=== PATIENT | male | born 1965 | race Caucasian/White ===

== ENCOUNTER 2022-07-12 01:18 | Day surgery (SDC) | payer OTHER, SELFPAY ==
[2022-07-04 12:27] VITALS: BMI 26.4
--- NOTE | 2022-07-04 12:30 | PC.NURSE ---
Report to the Outpatient Waiting Room, entrance under the green pavilion located off [facility], at time 10:30 on date 07/12/22. Planned Procedure Time: 12:30. Time changes happen often and if your time is changed the preop area will call you the afternoon before. - You and your visitor will be asked to self-screen and do not enter if you have any COVID symptoms. - Only one visitor is requested with a max of two and NO children visitors are allowed at this time. - The patient visitor may be requested to leave or wait in car when not with patient due to distancing restrictions. - A mask is optional within the hospital at this time. Patients may have clear liquids (water, carbonated beverages, clear teas, apple juice) until 3 hours prior to surgery with a maximum of 20 ounces. - No food from midnight until time of surgery Take the following medications with a SIP of water the morning of surgery: NONE DO NOT STOP ANY OF YOUR OTHER PRESCRIPTION MEDICATIONS PRIOR TO SURGERY EXCEPT THE FOLLOWING Medications to discontinue per physician: N/A Date to take last dose: N/A Please no make-up, nail amharic, hairspray, perfume, deodorant, or body powder the day of surgery. No jewelry (including any body piercings) or valuables the day of surgery, leave them at home. Please take a shower or bath the night before, or the morning of, surgery with an antibacterial soap. Wear comfortable, loose fitting clothing. - Jewelry must be removed prior to entering the operating room. Rings and piercings that are not removed may be cut off. - The hospital will not accept responsibility for valuables. - Please leave all valuables, including medications, at home the day of surgery. If you are going home after surgery, a licensed services delivery driver must drive you home. - NO public transportation without another adult if you receive anesthesia. - We recommend that an adult stay with you for 24 hours following discharge. - We also recommend that you do not drive, make important decision, drink alcoholic beverages, or take any drugs that were not prescribed by your health care provider for at least 24 hours after your discharge time. Follow any additional instructions given to you from your surgeon. If you or anyone in your household have experienced Covid symptoms in the past week, please notify your surgeon or the nurse liaison at the phone number below for possible testing. Telephone instructions given to PT - HLILARY DING and asked if any additional questions and then verbalized understanding. Patient advised to call surgeon office or pre surgery nurse liaison [phone] if any additional questions.
[2022-07-12 10:43] VITALS: BP 145/86; PULSE 84; RESP 18; TEMP 36.4; O2SAT 99
[2022-07-12 11:04] LABS: Urine Cotinine NEGATIVE
[2022-07-12] MEDS: LACTATED RINGERS 1,000 ML 30 ML IV CONT (11:06)
--- NOTE | 2022-07-12 12:02 | P.PNAN_ITS ---
Anes - Initial Pre Proc Eval Procedure: Operation Date: 07/12/22 12:30 Proposed Procedures p Bilateral Lower Blepharoplasty - Buck Morelos MD s Facial Fat Graft - Buck Morelos MD Date/Time: 07/12/22 12:02 Surgeon: Buck Morelos MD Pre Op Diagnosis: Unacceptable cosmetic appearance Patient Data Age: 56 Gender: M Height: 1.83 m Weight: 89.05 kg Last Vital Signs Temp 36.4 C 07/12/22 10:43 Pulse 84 07/12/22 10:43 Resp 18 07/12/22 10:43 BP 145/86 H 07/12/22 10:43 Pulse Ox 99 07/12/22 10:43 O2 Del Method Room Air 07/12/22 10:43 Allergies Allergy/AdvReac Type Severity Reaction Status Date / Time No Known Allergies Allergy Unverified 07/04/22 12:26 Home Medications Medication Instructions Recorded Confirmed Type atorvastatin 20 mg tablet 20 mg PO DAILY 03/28/22 07/04/22 History lisinopril 10 mg tablet 40 mg PO DAILY 03/28/22 07/04/22 History Laboratory Tests 07/12/22 10:45 Cotinine Negative Patient hx anesthesia problems: none Family hx anesthesia problems: none Results Review: All pre-operative results and documents have been reviewed as part of the pre- operative evaluation. [facility] Past Medical History Medical History (Updated 03/28/22 @ 08:40 by Husam Rocha DO) GERD (gastroesophageal reflux disease) Hyperlipidemia Hypertension Left wrist injury Surgical History Surgical History H/O lateral meniscus repair of left knee Family History Family History Mother Cancer Diabetes mellitus Hypertension Heart problem Father Cancer Grandparent Cancer Diabetes mellitus Hypertension Heart problem Cerebrovascular accident Social History Social History Smoking status: Never smoker Alcohol intake: current Drinks per week: 5 Alcohol use details: Beer and Scotch, bourbon on weekends Substance use: never Substance use type: does not use Living arrangements: with family Spiritual care concerns: No Agree to blood products: Yes Anes - Eval Final PreProcedure Day of Procedure 07/12/22 12:02 Patient weight: overweight Heart: regular rate and rhythm Lungs: clear to auscultation Airway: Mallampati scale class II Neurological: alert and oriented Last oral intake: >/= 8 hours ASA classification: II Emergent: no Anesthetic plan: proceed Anesthesia type and monitoring: general ETT and standard monitoring Results Review: All pre-operative results and documents have been reviewed as part of the pre- operative evaluation. Informed Consent: The patient's anesthetic plan and its attendant risks and benefits were discussed with the patient/family/POA. Questions were solicited and answers provided to the satisfaction of the patient/family/POA.
--- NOTE | 2022-07-12 13:14 | SUR.PREOP ---
1245 PT INFORMED OF FURTHER DELAY, STATES HE MAY RESCHEDULE IF HIS SURGERY DOES NOT START AROUND 1330. 1300 DR CUNNINGHAM AWARE OF PT POSSIBLY LEAVING. 1310 PT INFORMED OF APPROX. ONE HOUR AND 15 MINUTES. STATES HE WOULD LIKE TO RESCHEDULE
== END 2022-07-12 13:15 | disposition home or self-care (01) ==
PROVIDERS: PCP Internal Medicine; Visit Provider Surgery Plastic and Reconstructive Surgery
DX: Z41.1 Encounter for cosmetic surgery (principal); Z53.29 Procedure and treatment not carried out because of patient's decision for other reasons
CPT/HCPCS: 80307; A9270; J0171; J7030; J7120

== ENCOUNTER 2023-02-11 17:40 | Emergency (ER) | payer OTHER, SELFPAY ==
[2023-02-11 17:46] VITALS: BP 158/90; PULSE 80; RESP 16; TEMP 36.4; O2SAT 100
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
[2023-02-11] MEDS: TETANUS,DIPHTHERIA,AC PERTUSSIS ADULT (0.5 ML) BOOSTRIX IM (18:18)
== END 2023-02-11 18:29 | disposition home or self-care (01) ==
PROVIDERS: Emergency Provider Registered Nurse
DX: S01.81XA Laceration without foreign body of other part of head, initial encounter (principal); W20.8XXA Other cause of strike by thrown, projected or falling object, initial encounter; Z23 Encounter for immunization; K21.9 Gastro-esophageal reflux disease without esophagitis; E78.5 Hyperlipidemia, unspecified; I10 Essential (primary) hypertension
CPT/HCPCS: 12011; 90471; 90715; 99212; G0463

== ENCOUNTER 2023-04-29 13:53 | Outpatient (CLI) | payer OTHER, SELFPAY ==
--- NOTE | ~2023-04-29 | XR_ITS ---
EXAMINATION: XR lg joint inject/asp w image DATE: 04/29/2023 14:52 INDICATION: Primary osteoarthritis of right shoulder. TECHNIQUE: A time-out was performed to verify the patient's name, date of , and procedure to b e performed. The procedure including the risks, benefits, and alternatives was discussed with the pat ient. Risks discussed included bleeding and infection. The patient understood the risks and agreed to proceed. The skin overlying the right glenohumeral joint was prepped and draped in usual sterile fa shion. Anesthetic was administered with 1% lidocaine subcutaneously. A 22 G needle was advanced und er fluoroscopic guidance into the joint. Subsequently, injectate consisting of 4 mL 1% lidocaine and 1 mL 80 mg/mL Depo-Medrol was instilled. The needle was removed and the entry site was cleaned and dressed. There were no immediate complications. Fluoroscopy exposure time was 0.0 minutes. The total number of images was 1. FINDINGS: Real-time fluoroscopy demonstrates the needle in the right glenohumeral joint. Patient's pa in prior to procedure:08/26. Patient's pain following the procedure: 05/28. IMPRESSION: 1. Fluoroscopy guided right glenohumeral joint injection of local anesthetic and steroid with decreas e in the patient's presenting pain. Reviewed, dictated and finalized at location A. LEAD IMPRESSION: 1. Fluoroscopy guided right glenohumeral joint injection of local anesthetic an d steroid with decrease in the patient's presenting pain.
== END 2023-04-29 13:54 | disposition home or self-care (01) ==
PROVIDERS: PCP Internal Medicine; Visit Provider Physician Assistant Surgical
DX: M19.011 Primary osteoarthritis, right shoulder (principal)
CPT/HCPCS: 20610; 77002; J1040

== ENCOUNTER 2023-05-31 02:32 | Emergency (ER) | payer OTHER, SELFPAY ==
[2023-05-31] VITALS (13 sets, daily range): BP systolic 134; BP diastolic 77; PULSE 85–98; RESP 11–21; TEMP 36.1; O2SAT 97–99
--- NOTE | ~2023-05-31 | CT_ITS ---
EXAMINATION: CT brain wo con INDICATION: Headache COMPARISON: None TECHNIQUE: Standard unenhanced head CT. The dose-length product (DLP) was 681.00 mGy-cm. The mA was a djusted according to patient size. Iterative reconstruction technique was employed. FINDINGS: No intracranial hemorrhage, acute infarction, or abnormal mass lesion. The ventricles are n ormal. No abnormal mass effect or midline shift. The khanna-white matter differentiation is normal. The basal cisterns are patent. The orbits are normal. There is partial opacification of the paranasal si nuses. There are multiple facial fractures which will be described on the facial bone CT. IMPRESSION: 1. No acute intracranial abnormality. 2. Multiple facial fractures. See CT facial bones. Reviewed, dictated and finalized at location F. ABILITY MANAGER
--- NOTE | ~2023-05-31 | XR_ITS ---
EXAMINATION: XR pelvis 1-2V INDICATION: Pain after fall TECHNIQUE: AP view of the pelvis is obtained. COMPARISON: None available FINDINGS: Bone alignment is normal. There is no fracture. There is mild osteoarthritis of the hips. T he soft tissues are unremarkable. IMPRESSION: 1. No acute osseous abnormality. Reviewed, dictated and finalized at location F. CAL ASSISTANT DERMATOLOGY
--- NOTE | ~2023-05-31 | XR_ITS ---
EXAMINATION: XR chest 1V portable INDICATION: Pain after fall TECHNIQUE: Portable AP chest at 0309 hours COMPARISON: None available FINDINGS: The lungs are free of acute opacities. No pleural effusion or pneumothorax. The cardiomedia stinal silhouette is normal. IMPRESSION: 1. No acute cardiopulmonary abnormality. Reviewed, dictated and finalized at location F. RVISOR COMPRESSED YEAST
--- NOTE | ~2023-05-31 | XR_ITS ---
EXAMINATION: XR wrist RT min 3V INDICATION: Right wrist pain, initial encounter TECHNIQUE: Four views of the right wrist are obtained. COMPARISON: None available FINDINGS: There is an acute, traumatic, closed, comminuted intra-articular fracture of the distal rad ius. There is mild impaction and angulation at the fracture site. There is an acute ulnar styloid avu lsion. No additional fracture is identified. Wrist soft tissue swelling is noted. IMPRESSION: 1. Comminuted intra-articular fracture of the distal radius. 2. Ulnar styloid avulsion. Reviewed, dictated and finalized at location F. EXTINGUISHER REPAIRER
--- NOTE | ~2023-05-31 | CT_ITS ---
EXAMINATION: CT facial & cervical spine wo DATE: 05/31/2023 03:08 INDICATION: Head injury TECHNIQUE: Computed tomography (CT) of the maxillofacial region and cervical spine was performed with out intravenous contrast. The dose-length product (DLP) was 457.83 mGy-cm. Automated exposure control and iterative reconstruction technique were employed. COMPARISON: None FINDINGS: MAXILLOFACIAL CT: Acute comminuted and minimally displaced bilateral nasal bone fractures. There are acute comminuted f ractures of the anterior and lateral rice of the maxillary sinuses. There is a mildly displaced frac ture of the inferior wall of the right maxillary sinus. There is an inferolateral wall fracture of th e left maxillary sinus. There are bilateral medial and lateral pterygoid plate fractures. There is a fracture of the left inferior orbital wall. No muscular entrapment is identified. CERVICAL SPINE CT: There are 2 mm of anterolisthesis of C2 on C3. The vertebral body heights are maintained. The odontoi d process is intact. There is severe loss of intervertebral disc space height at C6-7 and moderate lo ss of disc space height at C5-6 and C7-T1. There is multilevel moderate to severe facet and uncoverte bral joint osteoarthritis. IMPRESSION: 1. Multiple facial fractures as detailed above. 2. Moderate cervical spondylosis without acute abnormality of the cervical spine. Reviewed, dictated and finalized at location F. STATION ATTENDANT IMPRESSION: 1. Multiple facial fractures as detailed above. 2. Moderate cervical spondylosis without acute abnormality of the cervical spin e.
--- NOTE | 2023-05-31 03:01 | ED.GENADULT ---
HPI - General Adult General Chief complaint: Fall Stated complaint: fall Time Seen by Provider: 05/31/23 02:46 History of Present Illness HPI narrative: This is a 57-year-old male presenting after fall downstairs. Patient is drinking alcohol. He does not remember the events that led to the fall down the stairs. His family heard a loud thud and found him at the bottom of stairs face down. Patient is intoxicated. He is currently complaining of facial pain and right wrist pain. Denies any other complaints. No use of blood thinners. Related Data Home Medications Medication Instructions Recorded Confirmed atorvastatin 20 mg tablet 20 mg PO DAILY 03/28/22 05/06/23 diclofenac sodium 75 mg 75 mg PO DAILY 02/11/23 05/06/23 tablet,delayed release Allergies Allergy/AdvReac Type Severity Reaction Status Date / Time No Known Allergies Allergy Verified 05/31/23 02:37 [facility] Past Medical History Medical History GERD (gastroesophageal reflux disease) Hyperlipidemia Hypertension Left wrist injury Surgical History Surgical History H/O hand surgery H/O lateral meniscus repair of left knee Family History Family History Mother Cancer Diabetes mellitus Hypertension Heart problem Father Cancer Grandparent Cancer Diabetes mellitus Hypertension Heart problem Cerebrovascular accident Social History Social History Smoking status: Never smoker Alcohol intake: current Drinks per week: 5 Alcohol use details: Beer and Scotch, bourbon on weekends Substance use: never Substance use type: does not use Do You Feel Safe in your Home?: Yes Lack of Transportation: No Lack of Food: Never True Current Housing: I Have Housing Concerned About Future Housing: No Difficulty Paying Gas/Electric Bills: No Difficulty Paying for Meds: No Currently Unemployed: No Education: Bachelor's Degree Difficulty w/ Childcare or Family Care: No Living arrangements: with family Spiritual care concerns: No Agree to blood products: Yes Exam Narrative: -Course: 57-year-old male presenting with facial trauma after falling downstairs. CT facial bones showed multiple fractures including left inferior wall fracture. No evidence of entrapment or eye complaints at this time. Case was discussed with Dr. Hidalgo who is covering maxillofacial at [facility] who it believes the patient can follow up safely in 1 week. Case also discussed with Dr. Valdez from the ophthalmology and the patient has been arranged appointment at 8:30 a.m. at Friday. Patient was placed in a right volar splint for impacted distal radius fracture. Patient will be given or ortho follow-up. 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 Lives with his Marie -Independent interpretation of studies: CT head negative. CT facial bones showed multiple facial bone fractures as well as a left inferior orbital wall fracture. Wrist x-ray showed an impacted distal radius fracture. Chest and pelvis negative. -Discussion of Management/Consultants:Dr. Hidalgo [facility]/Face, Dr. Lunsford, Optho -Dx tests considered but not ordered: -Procedures: -Interventions: 1 mg IM Dilaudid, Tdap -Shared decision making / Disposition: -RX Course Vital Signs Vital signs: Vital Signs Temperature 97.0 F L 05/31/23 02:29 Pulse Rate 87 05/31/23 02:29 Respiratory Rate 20 05/31/23 02:29 Blood Pressure 134/77 05/31/23 02:29 Pulse Oximetry 97 05/31/23 02:29 Oxygen Delivery Room Air 05/31/23 02:29 Temperature 97.0 F L 05/31/23 02:29 Pulse Rate 96 01
[2023-05-31 03:41] LABS: Basophils Percent Auto 0.6 % (0.2-1.2); Eosinophils Absolute Auto 0.2 K/mm3 (0-0.3); Eosinophils Percent Auto 2.8 % (0-4.4); Hematocrit 46.9 % (42.0-52.0); Hemoglobin 15.9 g/dL (14.0-18.0); Immature Granulocyte Absolute 0.03 K/mm3 (0.00-0.031); Immature Granulocyte Percent A 0.4 % (0-0.5); Lymphocytes Absolute Auto 1.35 K/mm3 (0.9-3.2); Lymphocytes Percent Auto 19.2 % (18.3-44.2); Mean Corpuscular HGB Conc 33.9 g/dl (32-36); Mean Corpuscular Hemoglobin 31.9 pg (26-34); Mean Corpuscular Volume 94.2 fl (80-100); Mean Platelet Volume 9.6 fl (7.4-10.4); Monocytes Absolute Auto 0.3 K/mm3 (0.1-0.6); Monocytes Percent Auto 4.8 % (2.6-8.5); Neutrophils Absolute Auto 5.1 K/mm3 (1.3-6.7); Neutrophils Percent Auto 72.2 % (45.5-73.1); Platelet Count Result 269 k/mm3 (150-375); Red Blood Count 4.98 M/mm3 (4.6-6.20); Red Cell Distribution Width 12.8 % (11.5-14.5)
[2023-05-31] MEDS: TETANUS,DIPHTHERIA,AC PERTUSSIS ADULT (0.5 ML) BOOSTRIX IM (03:53)
[2023-05-31 03:54] LABS: Alanine Aminotransferase 64 U/L (6-50); Albumin Level 4.5 g/dL (3.5-5.1); Alkaline Phosphatase 88 U/L (38-126); Anion Gap 14 mmol/L (8-16); Aspartate Amino Transferase 47 U/L (17-59); Bilirubin,Total 0.3 mg/dL (0.2-1.3); Blood Urea Nitrogen 12 mg/dL (9-20); Calcium 9.1 mg/dL (8.4-10.2); Carbon Dioxide 21 mmol/L (22-30); Chloride 108 mmol/L (98-107); Estimated CRCL calculation 92 ml/min; Estimated Glomerular Filt Rate > 60; Ethanol 200 mg/dL (<10); Glucose 106 mg/dL (65-110); Lactic Acid Reflex 2.8 mmol/L (0.7-2.0); Lipase 437 U/L (23-300); Magnesium 2.4 mg/dL (1.6-2.3); Potassium 3.6 mmol/L (3.4-5.0); Sodium 143 mmol/L (137-145)
[2023-05-31 03:56] LABS: INR 0.8; Prothrombin Time 11.8 Seconds (11.1-14.7)
[2023-05-31] MEDS: HYDROmorphone HCL INJ (*CRX) 1 MG/ML SYR IM (06:10)
[2023-05-31 06:39] LABS: Reflex Lactic Acid Yes or No Add Lactic
== END 2023-05-31 06:50 | disposition home or self-care (01) ==
PROVIDERS: Emergency Provider Emergency Medicine; PCP Internal Medicine
DX: S02.2XXA Fracture of nasal bones, initial encounter for closed fracture (principal); S02.32XA Fracture of orbital floor, left side, initial encounter for closed fracture; S02.19XA Other fracture of base of skull, initial encounter for closed fracture; S02.40DA Maxillary fracture, left side, initial encounter for closed fracture; S02.40CA Maxillary fracture, right side, initial encounter for closed fracture; S52.571A Other intraarticular fracture of lower end of right radius, initial encounter for closed fracture; S52.611A Displaced fracture of right ulna styloid process, initial encounter for closed fracture; F10.129 Alcohol abuse with intoxication, unspecified; Y90.7 Blood alcohol level of 200-239 mg/100 ml; Z23 Encounter for immunization; I10 Essential (primary) hypertension; E78.5 Hyperlipidemia, unspecified; K21.9 Gastro-esophageal reflux disease without esophagitis; M47.812 Spondylosis without myelopathy or radiculopathy, cervical region; W10.9XXA Fall (on) (from) unspecified stairs and steps, initial encounter
CPT/HCPCS: 29125; 36415; 70450; 70486; 71045; 72125; 72170; 73110; 80053; 80307; 83605; 83690; 83735; 85025; 85610; 85730; 90471; 90715; 96372; 99284; J1170

== ENCOUNTER 2023-06-10 02:14 | Day surgery (SDC) | payer OTHER, SELFPAY ==
[2023-06-09 08:32] VITALS: BMI 24.7
--- NOTE | 2023-06-09 08:43 | PC.NURSE ---
Report to the Outpatient Waiting Room, entrance under the green pavilion located off [facility], at 1300 on 06/10/23. Planned Procedure Time: 1500. Time changes happen often and if your time is changed the preop area will call you the afternoon before. - You and your visitor will be asked to self-screen and do not enter if you have any COVID symptoms. - A mask is optional within the hospital at this time. Patients may have clear liquids (water, carbonated beverages, clear teas, apple juice) until 3 hours prior to surgery with a maximum of 20 ounces. - No food from midnight until time of surgery Take the following medications with a SIP of water the morning of surgery: Oxycodone if needed DO NOT STOP ANY OF YOUR OTHER PRESCRIPTION MEDICATIONS PRIOR TO SURGERY ?EXCEPT THE FOLLOWING Medications to discontinue per physician n/a Date to take last dose n/a Please no make-up, nail tuvaluan, hairspray, perfume, deodorant, or body powder the day of surgery. No jewelry (including any body piercings) or valuables the day of surgery, leave them at home. Please take a shower or bath the night before, or the morning of, surgery with an antibacterial soap. Wear comfortable, loose fitting clothing. - Jewelry must be removed prior to entering the operating room. Rings and piercings that are not removed may be cut off. - The hospital will not accept responsibility for valuables. - Please leave all valuables, including medications, at home the day of surgery. If you are going home after surgery, a licensed test driver must drive you home. - NO public transportation without another adult if you receive anesthesia. - We recommend that an adult stay with you for 24 hours following discharge. - We also recommend that you do not drive, make important decision, drink alcoholic beverages, or take any drugs that were not prescribed by your health care provider for at least 24 hours after your discharge time. Follow any additional instructions given to you from your surgeon. If you or anyone in your household have experienced Covid symptoms in the past week, please notify your surgeon or the nurse liaison at the phone number below for possible testing. Telephone instructions given to patient and asked if any additional questions and then verbalized understanding. Patient advised to call surgeon office or pre surgery nurse liaison [phone] if any additional questions.
--- NOTE | 2023-06-09 16:00 | WPDANESEPPF ---
Anes - Initial Pre Proc Eval Procedure: Operation Date: 06/10/23 14:00 Proposed Procedures p Open Reduction Internal Fixation Right Wrist Fracture - Manan Bryant MD Date/Time: 06/09/23 16:00 Surgeon: Manan Bryant MD Pre Op Diagnosis: distal radius fracture right wrist Patient Data Age: 57 Gender: M Height: 1.83 m Weight: 82.56 kg Allergies Allergy/AdvReac Type Severity Reaction Status Date / Time No Known Allergies Allergy Verified 06/10/23 12:47 Home Medications Medication Instructions Recorded Confirmed Type diclofenac sodium 75 mg 75 mg PO DAILY 02/11/23 06/10/23 History tablet,delayed release lisinopril 40 mg tablet 40 mg PO DAILY #90 tabs 04/14/23 06/10/23 Rx azelastine 137 mcg (0.1 %) nasal 1 spray intranasal Q12H PRN 05/06/23 06/10/23 Rx spray aerosol rhinitis #30 mL zolpidem 6.25 mg tablet,extended 6.25 mg PO QHS PRN sleep #30 tabs 05/07/23 06/10/23 Rx release,multiphase amoxicillin 875 mg-potassium 1 tablet PO Q12H #20 tabs 05/31/23 06/10/23 Rx clavulanate 125 mg tablet oxycodone 5 mg tablet 5 mg PO Q4H PRN pain #14 tabs 06/06/23 06/10/23 Rx Patient hx anesthesia problems: none Family hx anesthesia problems: none Results Review: All pre-operative results and documents have been reviewed as part of the pre-operative evaluation. [facility] Past Medical History Medical History GERD (gastroesophageal reflux disease) Hyperlipidemia Hypertension Left wrist injury Surgical History Surgical History H/O hand surgery H/O lateral meniscus repair of left knee Family History Family History Mother Cancer Diabetes mellitus Hypertension Heart problem Father Cancer Grandparent Cancer Diabetes mellitus Hypertension Heart problem Cerebrovascular accident Social History Social History Smoking status: Never smoker Second hand tobacco smoke exposure: No Alcohol intake: current Drinks per week: 4 Alcohol use details: Beer and Scotch, bourbon on weekends Substance use: never Substance use type: does not use Do You Feel Safe in your Home?: Yes Lack of Transportation: No Lack of Food: Never True Current Housing: I Have Housing Concerned About Future Housing: No Difficulty Paying Gas/Electric Bills: No Difficulty Paying for Meds: No Currently Unemployed: No Education: Bachelor's Degree Difficulty w/ Childcare or Family Care: No Living arrangements: with family Spiritual care concerns: No Agree to blood products: Yes Anes - Eval Final PreProcedure Day of Procedure 06/09/23 16:00 Patient weight: normal Heart: regular rate and rhythm Lungs: clear to auscultation Airway: Mallampati scale class II Neurological: alert and oriented Last oral intake: >/= 8 hours ASA classification: II Emergent: no Anesthetic plan: proceed Anesthesia type and monitoring: general LMA and standard monitoring Results Review: All pre-operative results and documents have been reviewed as part of the pre-operative evaluation. Informed Consent: The patient's anesthetic plan and its attendant risks and benefits were discussed with the patient/family/POA. Questions were solicited and answers provided to the satisfaction of the patient/family/POA.
[2023-06-10] VITALS (11 sets, daily range): BP systolic 114–148; BP diastolic 64–83; PULSE 65–90; RESP 11–17; TEMP 36.4–36.6; O2SAT 93–100
--- NOTE | ~2023-06-10 | XR_ITS ---
EXAMINATION: XR surgery orthopedic DATE: 06/10/2023 16:41 INDICATION: ORIF right wrist fracture TECHNIQUE: 4 fluoroscopic images of the right wrist were obtained during procedure performed by Dr. Alpa gordon. Radiologist was not present for the imaging or procedure. The amount of fluoroscopy time used during this procedure was 4.3 minutes. COMPARISON: Radiograph dated 05/31/2023 FINDINGS: Reduction and fixation previously seen comminuted intra-articular fracture of the right radius with a volar T plate and screws. Unchanged mild dorsal impaction resulting in essentially neutral tilt of t he distal articular surface of the lateral image. No other fractures identified. Profiled joint space s right wrist/carpus appear relatively preserved. IMPRESSION: 1. Near-anatomic alignment post fixation screw fixation of a comminuted intra-articular fracture of t he distal right radius. Reviewed, dictated and finalized at location A. DRIVER IMPRESSION: 1. Near-anatomic alignment post fixation screw fixation of a comminuted intra-a rticular fracture of the distal right radius.
--- NOTE | 2023-06-10 07:14 | WPDHPUPDATE1 ---
History and Physical Update Update Date/Time: 06/10/23 07:14 History and Physical has been reviewed, including an updated exam of the patient. There are NO changes in the patient's condition. Risks, benefits, and alternatives have been discussed and questions answered. Patient agrees to proceed with procedure.
[2023-06-10] MEDS: ceFAZolin 2 GM/D5W 50 ML 2 GM/50 ML BAG IVPB (15:26)
[2023-06-10] MEDS: BUPivacaine HCL 0.5% 10 ML AMP 20 ML INFILTRATE (16:09)
[2023-06-10] MEDS: LACTATED RINGERS 1,000 ML 30 ML IV CONT ×2 (17:05→17:25)
--- NOTE | 2023-06-10 17:15 | P.OP_ITS ---
Procedure Note - Detailed Date of Procedure 06/10/23 Pre-op Diagnosis distal radius fracture right wrist Post-op Diagnosis Same Procedure Performed ORIF RIGHT DISTAL RADIUS FRACTURE Surgeon Manan Bryant MD Anesthesia General Description of Procedure THE RIGHT UPPER EXTREMITY WAS PREPPED AND DRAPED IN THE STERILE FASHION. A STANDARD HENRYS APPROACH WAS USED TO THE VOLAR WRIST. DISSECTION THROUGH THE SKIN AND SUBCUTANEOUS TISSUE WAS PREFORMED. THE FCR TENDON WAS IDENTIFIED. THE RADIAL ARTERY WAS IDENTIFIED AND RETRACTED. THE THE FLEXOR POLLICIS AND THE COMMON FLEXOR TENDONS WERE IDENTIFIED AND RETRACTED. THE PRONATOR QUADRATUS WAS IDENTIFIED AND INCISED EXPOSING THE FRACTURE. A TRIAL REDUCTION WAS PREFORMED AND FIXED WITH A K WIRE. NEXT A BIOMET DISTAL RADIUS LOCKING PLATE WAS PLACED BRIDGING THE FRACTURE FRAGMENTS. SCREWS WERE PLACED DISTALLY AND PROXIMALLY. THE DISTAL SCREWS WERE IMAGED AND FOUND TO BE EXTRA ARTICULAR. C ARM IMAGES WERE PREFORMED AND HARDWARE AND FRACTURE FRAGMENTS WERE IN GOOD POSITION. THE TOURNIQUET WAS DEFLATED AND THE BLEEDERS WERE CAUTERIZED. THE FASCIA AND S UB CUTANEOUS LAYERS WERE APPROXIMATED WITH 3-0 VICRYL. THE SKIN WAS APPROXIMATED WITH MICHAEL. STERILE DRESSING AND SPLINT WAS APPLIED. PATIENT WAS EXTUBATED. Estimated Blood Loss 20 Complications No immediate complications Condition Stable Disposition PACU
[2023-06-10] MEDS: fentaNYL CITRATE INJ (*CRX) 100 MCG/2 ML VIAL 25 MCG IV PUSH ×8 (17:17→17:47)
[2023-06-10] MEDS: HYDROmorphone HCL INJ (*CRX) 1 MG/ML SYR 0.5 MG IV PUSH ×6 (18:05→18:42)
[2023-06-10] MEDS: oxyCODONE HCL (*CRX) 5 MG TAB IR PO (19:22)
== END 2023-06-10 19:52 | disposition home or self-care (01) ==
PROVIDERS: PCP Internal Medicine; Visit Provider Orthopaedic Surgery
PROC: (CPT 25575; principal; 2023-06-10 14:00)
DX: S52.571A Other intraarticular fracture of lower end of right radius, initial encounter for closed fracture (principal); W10.9XXA Fall (on) (from) unspecified stairs and steps, initial encounter; I10 Essential (primary) hypertension; E78.5 Hyperlipidemia, unspecified; K21.9 Gastro-esophageal reflux disease without esophagitis
CPT/HCPCS: 25608; 99199; A9270; C1713; J0690; J1100; J1170; J2250; J2405; J2704; J3010; J7120

== ENCOUNTER 2023-09-11 08:00 | Outpatient (RCR) | payer OTHER, SELFPAY ==
--- NOTE | 2023-08-08 14:40 | OTOPEVAL1 ---
Assessment and note entered by Ezequiel Walters, TAYLOR/Nichole, CHT Evaluation Information Assessment Status Evaluation Diagnosis Right distal radius fracture s/p ORIF Subjective Information He is right handed. 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 He reports residual stiffness, weakness, and soreness is limiting return of right hand use for ADLs, lifting, gripping, etc. Assessment OT Clinical Summary Patient referred to OT with decrease right hand/UE use following right distal radius fracture s/p ORIF. He is reporting difficulties due to residual stiffness and soreness that limits heavier lifting. He is very motivate to get back in the gym. Skilled OT indicated for use of modalities, manual therapy, HEP instruction/progression, and therapeutic exercise to maximize functional ROM, strength, and use of the right UE. Plan of Care Interventions Therapeutic Exercise,Manual Therapy,Therapeutic Activities,Hot Pack/Cold Pack,Paraffin OT Services Indicated Yes Treatment Frequency and 1x/week for 4 visits Duration These treatments will address the objective and functional deficits as defined above. The patient will be advanced safely and appropriately in order for the patient to progress towards his/her prior level of function. Additional exercises will be introduced and as well as a comprehensive home exercise program upon discharge, if needed, ?to ensure carryover of functional gains achieved in the clinic. This treatment plan has been reviewed and agreement upon by the patient.
--- NOTE | 2023-08-08 14:43 | OPREHPOC ---
Outpatient Therapy Plan of Care This is a Multidisciplinary Plan of Care that may contain components documented by all disciplines (PT, OT, and ST.) OT Problem 1 OT Problem #1 Knowledge Deficit OT Goal 1 Goal 1. Patient to be independent with instructed materials. Target Visit 5 OT Problem 2 OT Problem #2 Impaired Range of Motion OT Goal 1 Goal Increase active ROM of the right UE: 1. supination to 70 2. pronation to 70 3. wrist flexion to 45 4. wrist extension to 50 Target Visit 5 OT Problem 3 OT Problem #3 Impaired Strength OT Goal 1 Goal 1. Improve functional wrist strength to be able to complete wrist strengthening in all planes with 3 lb. free weight x20 reps. 2. 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 Target Visit 5
--- NOTE | 2023-09-11 08:42 | OTOPDC ---
Assessment and note entered by Ezequiel Walters, TAYLOR/Nichole, CHT Discharge Summary 09/11/23 Diagnosis Right distal radius fracture s/p ORIF Subjective Information Patient reports his wrist is more flexible and strong, but he feels like he has room for improvement yet. He reports no functional limitations, just residual soreness with use. Reports soreness with lifting his backpack and with activities that require force through that hand, such as hammering. Reports the soreness is on the ulnar side of the wrist. Forearm supination improved from 55 to 80 deg. Forearm pronation improved from 45 to 75 deg. Wrist flexion improved from 35 to 45 deg. Wrist extension improved from [address] improved from 15 to 25 deg Wrist UD remained at 10 deg. Finger and thumb ROM remained WNL. 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 Assessment OT Clinical Summary Patient referred to OT with decrease right hand/UE use following right distal radius fracture s/p ORIF. He has made steady progress with functional ROM and strength. He is demonstrating some residual deficit with ROM, particularly with forearm pronation and wrist flexion. Reviewed HEP today and discussed importance of continuing HEP for ROM and strengthening. He is currently independent with all materials and in agreement with discharge. Thank you for this referral. Plan of Care OT Services Indicated No
== END 2023-09-11 10:45 | disposition home or self-care (01) ==
LOC: ANHGOSHOT 08:00
PROVIDERS: PCP Internal Medicine; Visit Provider Orthopaedic Surgery
DX: S52.501D Unspecified fracture of the lower end of right radius, subsequent encounter for closed fracture with routine healing (principal); Z98.890 Other specified postprocedural states; Z87.81 Personal history of (healed) traumatic fracture
CPT/HCPCS: 97018; 97110; 97140; 97165